=== PATIENT | male | born 1980 | race Caucasian/White ===

== ENCOUNTER 2021-12-23 16:30 | Outpatient (RCR) | payer OTHER, SELFPAY ==
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
--- NOTE | 2022-05-21 13:31 | HP.PTDCSUM ---
It has been my pleasure to treat FELICITAS DENNISON referred by ELIZA Fong, with the diagnosis of BILATERAL CHRONDOMALCIA PATELLA, RIGHT PATELLA TENDONITIS,L ITB SYNDROME for a total of 8 visit(s). Discharge Date: Please see the following information for a summary of their discharge status. Subjective: PT states not m muck ..Pain is hurting with squatting/kneeling. Conts to have popping/cracking Right Knee Pain Intensity (Out of 10): 8 Left Knee Pain Intensity (Out of 10): 6 Objective/Function: POSTURE: WFL. GAIT: reciprocal pattern. MMT: quads/hams 4/5 ,hip flexion 4/5.4-/5 hip abd 4-/5. AROM: 0-120 degrees left ,right knee flexion 0-125 supine degrees. possible benefit from MRI Goal 1:: Patient to be I with HEP KNEES Goal 2:: Patient to demonstrate 50% improvement with decrease pain to improve function Goal 3:: Patient improve AROM RIGHT knee 0-130 degrees to improve function and modified squating Goal 4:: Patient to improve LFES score by 5-10 points to improve QOL Goal 5:: Patient increase strength quads/hams/hip 5/5 to improve function with job demands Plan: RTD If there are questions or concerns regarding this patient's physical therapy, please feel free to call me at [phone]. Thank you for the referral of this patient. Sincerely, Du Benitez, PT, Cert MDT, OCS Balance/Gait/Functional tests - Balance/Special Test Scores Lower Extremity Functional Score: 39
== END 2021-12-23 19:00 | disposition home or self-care (01) ==
LOC: PT 16:30
PROVIDERS: PCP Family Medicine; Referring Provider Physician Assistant; Visit Provider Physician Assistant
DX: M22.41 Chondromalacia patellae, right knee (principal); M22.42 Chondromalacia patellae, left knee; M76.51 Patellar tendinitis, right knee; M76.32 Iliotibial band syndrome, left leg
CPT/HCPCS: 97014; 97110; 97140; 97161; G0283

== ENCOUNTER → 2022-06-11 | Outpatient (CLI) | payer OTHER, SELFPAY ==
--- NOTE | 2022-06-11 17:59 | MRI_ITS ---
STUDY: MRI RIGHT KNEE REASON FOR EXAM: Right knee pain for several years, instability. TECHNIQUE: Standardized fat and water weighted pulse sequences were obtained in all 3 orthogonal planes. COMPARISON: Radiographs 11/06/2021. FINDINGS: Normal medial meniscus. Normal hyaline cartilage of the medial femorotibial compartment. Normal medial femoral condyle and tibial plateau. Normal medial collateral ligamentous complex (MCL). Normal distal semimembranosus, gracilis and semitendinosus tendons. Normal lateral meniscus. Normal hyaline cartilage of the lateral femorotibial compartment. Normal lateral femoral condyle and tibial plateau. Normal proximal tibiofibular articulation. Normal lateral collateral (fibular) ligament. Normal popliteus tendon. Normal biceps femoris tendon. There is intrasubstance mucoid degeneration/cyst of the anterior cruciate ligament (T2 sagittal image 12). There is a lobulated cyst anterior to the distal anterior cruciate ligament (T2 sagittal images 12-15) measuring 1.9 cm in transverse dimension. Normal posterior cruciate ligament (PCL). Normal congruent patellofemoral articulation. Normal hyaline cartilage of the patellofemoral compartment. Normal medial and lateral patellar retinaculum. Normal visualized quadriceps tendon. Normal patellar tendon. Normal Hoffa''s fat pad. There is a very small joint effusion. There is focal synovitis at the posterior superior aspect of the lateral femoral condyle (T2 coronal image 12) measuring 1.3 cm in transverse dimension. The soft tissues are unremarkable. There is mild cystic change of the proximal tibia at the insertion site of the anterior cruciate ligament. MRI/Lower Ext Joint Only (Routine) IMPRESSION: Intrasubstance mucoid degeneration/cyst of the anterior cruciate ligament. Cyst anterior to the distal anterior cruciate ligament. Very small joint effusion. Focal synovitis at the posterior superior aspect of the lateral femoral condyle. No demonstrated meniscal tear. Electronically Signed: Mann Zamorano MD at 19:35 EDT ,
== END | disposition home or self-care (01) ==
LOC: MRI 17:50
PROVIDERS: PCP Family Medicine; Referring Provider Physician Assistant; Visit Provider Physician Assistant
DX: M25.561 Pain in right knee (principal); M76.32 Iliotibial band syndrome, left leg; M22.41 Chondromalacia patellae, right knee; M22.42 Chondromalacia patellae, left knee
CPT/HCPCS: 73721

== ENCOUNTER → 2022-10-02 | Outpatient (CLI) | payer OTHER, SELFPAY ==
--- NOTE | 2022-10-02 17:46 | MRI_ITS ---
EXAM: MR LEFT LOWER EXTREMITY WITHOUT INTRAVENOUS CONTRAST, KNEE CLINICAL INDICATION: left knee pain, possible biceps tendonitis vs ITB TECHNIQUE: Multiplanar and multisequence MR images of the left knee without intravenous contrast. This report was created using [employer] report [employer] technology. COMPARISON: None. FINDINGS: BONES/JOINTS: See below. EXTENSOR MECHANISM: Extensor mechanism is intact. MEDIAL MENISCUS: Unremarkable. LATERAL MENISCUS: Unremarkable. MEDIAL CAPSULE/SUPPORTING STRUCTURES: Unremarkable. Intact. LATERAL CAPSULE/SUPPORTING STRUCTURES: Unremarkable. Lateral collateral ligamentous complex, inclusive of the popliteal tendon, are intact. ANTERIOR CRUCIATE LIGAMENT: Suggestion of partial thickness tearing involving the anterior cruciate ligament with some apparently wavy fibers demonstrated. Correlate with clinical exam findings. Posterior cruciate ligament is intact. POSTERIOR CRUCIATE LIGAMENT: See above. MUSCLES: Unremarkable. CARTILAGE: No focal chondral defects. No focal chondral defects or significant arthritic changes. FLUID: No significant joint effusion. No Alfredo''s cysts. OTHER SOFT TISSUES: Ganglion cysts are identified along the anterior intercondylar notch measuring up to 1.4 cm. MRI/Lower Ext Joint Only (Routine) IMPRESSION: 1. Suggestion of partial thickness tearing involving the anterior cruciate ligament with some apparently wavy fibers demonstrated. Correlate with clinical exam findings. Alternatively, this could represent mucoid degeneration also. 2. No other significant internal derangement. Electronically Signed: Michael Wetzel MD at 3:52 EST ,
== END | disposition home or self-care (01) ==
LOC: MRI 17:45
PROVIDERS: PCP Family Medicine; Visit Provider Orthopaedic Surgery Sports Medicine
DX: M25.562 Pain in left knee (principal); M62.89 Other specified disorders of muscle
CPT/HCPCS: 73721

== ENCOUNTER 2022-11-12 05:55 | Day surgery (SDC) | payer OTHER, SELFPAY ==
[2022-11-12] VITALS (7 sets, daily range): BP systolic 105–128; BP diastolic 72–91; PULSE 59–77; RESP 16–18; TEMP 36.4–36.8; O2SAT 93–99; BMI 28.5
[2022-11-12] MEDS: Lactated Ringers 1,000 ML 15 ML IV ×2 (06:10→08:55)
--- NOTE | 2022-11-12 07:15 | PCM.HP.STD ---
HPI - General HPI Narrative FELICITAS DENNISON, is a 42 M who presents for right knee arthroscopy, debridement, lateral release. No changes to H and P. Post op recovery guidelines discussed. Narcotic counselling for post op medications. Right knee marked. OK to proceed. [facility] [address] [place] [address] OFFICE VISIT Date of Service:? 09/15/22 MR#: [id number] Acct: [id number] Name:FELICITAS SARAVIA Rep #: [id number] : 1980 ? ? Provider: Dr. Bunny Harrison MD Age/Sex:? 41/M ? ? [place] [facility] Status: Signed Intake Intake Visit Reasons:?RIGHT KNEE Chief Complaint: BL Knee Pain Allergies No Known Allergies Allergy (Verified 09/15/22 15:42) Medications esomeprazole magnesium 40 mg capsule,delayed release 40 mg PO DAILY 11/06/21 [History Confirmed 09/15/22] etodolac 300 mg capsule 300 mg PO .COMPLEX #30 caps 06/04/22 [Rx Confirmed 09/15/22] PFSH Medical History?(Updated 09/15/22 @ 16:35 by Bunny Harrison MD) Acid reflux Effusion, right knee Hamstring tightness of left lower extremity Left knee pain Patellofemoral disorders, right knee Sprain of anterior cruciate ligament of right knee Surgical History? History of rotator cuff surgery Family History? Grandfather DiabetesGrandmother Diabetes CVA (cerebral vascular accident) Breast cancerFather Hepatitis C Social History? Smoking Status:? Former smoker Electronic Cigarette Use:? not used second hand exposure:? No alcohol intake:? current alcohol intake frequency: a few times a week substance use type:? does not use HPI RIGHT KNEE Details: Parts of this documentation were recorded by a scribe, this documentation accurately reflects the service provided and the decisions made by me, Dr. Bunny Harrison MD 09/15/22 [id number]. FELICITAS DENNISON is a 41 year old M here today for right knee pain and swelling anterior,, a lot of popping, sometimes giving out when walking. Level of the pain is a 8/10. No radiation. Stabbing, sharp pain.? Nothing makes it better, nothing makes it worse. [place] - walking at [employer], using a mc. Heavy lifting - not more than [address]. [address] Whitman 5 years ago who suggested a lateral release. DId have 2 cortisone injections, 4 years ago. No help with NSAIDs recently. On the left side he has posterior lateral knee pain no instability seen here little bit better with physical therapy including foam rolling.? It centered at the distal posterior lateral aspect of the knee. Ortho Exam General General: Yes no acute distress Neurologic: Yes alert and Yes oriented x3 Psychologic: Yes reasonable and appropriate Right Knee Skin/Wound: Yes CDI, No erythema, No ecchymosis and No swelling 1+: Effusion Knee ROM: Yes ROM-Flexion 0-140 Examination: Yes Med jt line tenderness, No Lat jt line tenderness, Yes TTP inf pole patella, Yes Crepitus, Yes Pain with extention, No Venessa's Test, No TTP Tibial tubercle, No TTP Pes Anserine and No Illiotibial band tenderness Stability: NML: Anterior Drawer, NML: Posterior Drawer, NML: Valgus 0, NML: Valgus 30, NML: Varus 0 and NML: Varus 30 and 1+: Lyly Patella Translation: 1 Apprehension with Lateral Translation: No Patellar Tilt Normal: Yes Patella Grind: Yes KNEE: Most of the pain seems to be coming from the patellofemoral joint.? There is positive patellofemoral grind test negative J sign patella translates about 1 possibly 2 quadrants medially and laterally little bit of tightness laterally.? No excess tilt.? He has slight varus alignment. Left Knee Skin/Wound: Yes CDI, No ecchymosis, No erythema and No swelling Knee ROM: Yes ROM-Flexion 0-140 Examination: No med jt line tenderness, No Lat jt line tenderness, No TTP inf pole patella, Yes Crepitus, Yes Pain with flexion, No Venessa's Test, No TTP Patellar tendon, No TTP Tibial tubercle and Yes Illiotibial band tenderness Quad Atrophy: No Stability: NML: Anterior Drawer, NML: Lyly, NML: Posterior Drawer, NML: Valgus 0, NML: Valgus 30, NML: Varus 0 and NML: Varus 30 Apprehension with Lateral Translation: No Patella Translation: 1 Patellar Tilt Normal: Yes Patella Grind: No KNEE: The pain seems to be centered at the biceps femoris insertion as well as the along the LCL and IT band in the region of the fibular head and exacerbated with resisted knee flexion. Supplemental Info TUDY: ? X-RAY - BILATERAL KNEES REASON FOR EXAM: ? Male, 41 years old.? BILATERAL KNEE PAIN TECHNIQUE: 3 view(s) of the right knee were obtained. 3 view(s) of the left knee were obtained. 2 view(s) of the bilateral knees were obtained including AP standing weight-bearing views. COMPARISON: ? None. FINDINGS - RIGHT KNEE: Normal visualized right distal femur.? Normal visualized proximal right tibia and fibula.? Normal right proximal tibiofibular articulation. There is moderate degenerative arthrosis of the medial femorotibial compartment with moderate joint space narrowing.? Normal lateral femorotibial compartment of the right knee.? Normal patellofemoral articulation of the right knee. The soft tissue structures are unremarkable. FINDING - LEFT KNEE: Normal visualized left distal femur.? Normal visualized proximal left tibia and fibula.? Normal left proximal tibiofibular articulation. There is mild degenerative arthrosis of the medial femorotibial compartment of the left knee.? Normal lateral femorotibial compartment of the left knee.? Normal patellofemoral articulation of the left knee. The soft tissue structures are unremarkable. RAD/Knee 4 or More Views IMPRESSION: Moderate degree of osteoarthritis of the medial compartment of the right knee joint. ? Electronically Signed: Sp Fox MD at 15:24 EST , Service support? , ? MR#:? [id number] Acct: [id number] Name:FELICITAS SARAVIA Rep #: [id number] :?? 1980 M 41 ? From:? ? Mann Zamorano MD PCP: Dr. Vik Thomason, DO ? Status: REG CLI Study: Lower Ext Joint Only (Routine) ? Date of Exam: 06/11/22 Exam# [id number] ? Ordering Dr:? Edilson Davey STUDY:? MRI RIGHT KNEE REASON FOR EXAM: Right knee pain for several years, instability. TECHNIQUE:? Standardized fat and water weighted pulse sequences were obtained in all 3 orthogonal planes. COMPARISON:? Radiographs 11/06/2021. FINDINGS: Normal medial meniscus.? Normal hyaline cartilage of the medial femorotibial compartment.? Normal medial femoral condyle and tibial plateau. Normal medial collateral ligamentous complex (MCL).? Normal distal semimembranosus, gracilis and semitendinosus tendons. Normal lateral meniscus.? Normal hyaline cartilage of the lateral femorotibial compartment.? Normal lateral femoral condyle and tibial plateau. Normal proximal tibiofibular articulation.? Normal lateral collateral (fibular) ligament.? Normal popliteus tendon.? Normal biceps femoris tendon. There is intrasubstance mucoid degeneration/cyst of the anterior cruciate ligament (T2 sagittal image 12).? There is a lobulated cyst anterior to the distal anterior cruciate ligament (T2 sagittal images 12-15) measuring 1.9 cm in transverse dimension.? Normal posterior cruciate ligament (PCL). Normal congruent patellofemoral articulation.? Normal hyaline cartilage of the patellofemoral compartment.? Normal medial and lateral patellar retinaculum. Normal visualized quadriceps tendon.? Normal patellar tendon.? Normal Hoffa''s fat pad. There is a very small joint effusion.? There is focal synovitis at the posterior superior aspect of the lateral femoral condyle (T2 coronal image 12) measuring 1.3 cm in transverse dimension. The soft tissues are unremarkable.? There is mild cystic change of the proximal tibia at the insertion site of the anterior cruciate ligament. MRI/Lower Ext Joint Only (Routine) IMPRESSION: Intrasubstance mucoid degeneration/cyst of the anterior cruciate ligament. ? Cyst anterior to the distal anterior cruciate ligament. ? Very small joint effusion. ? Focal synovitis at the posterior superior aspect of the lateral femoral condyle. ? No demonstrated meniscal tear. ? Electronically Signed: Mann Zamorano MD at 19:35 EDT , I personally reviewed the MRI and x-rays.? Patella is sitting in the groove.? Very minor arthrosis there with the MRI and x-ray findings.? I think there are only minor arthrosis changes in the medial compartment on the radiographs despite the radiologist saying that this is moderate.? I do agree that there is intrasubstance degeneration of the ACL as well as a cyst anterior to this and a small joint effusion no meniscus tear. ? Coding Level of Care Code Off vis,new,level 4 Diagnoses Left knee pain? M25.562 Hamstring tightness of left lower extremity? M62.89 Right knee pain? M25.561 Patellofemoral disorders, right knee? M22.2X1 Effusion, right knee? M25.461 Sprain of anterior cruciate ligament of right knee? S83.511A Time Spent (min) 45 Assessment and Plan Assessment and Plan (1) Left knee pain: ?Status:?Acute (2) Hamstring tightness of left lower extremity: ?Status:?Acute ?Plan: 41-year-old man with left-sided knee pain posterior laterally stable ligamentous exam he could have lateral meniscus tear he did have lateral joint line tenderness as well as tenderness in the region of the fibular head this may be attributable to IT band friction syndrome or biceps femoris tendinitis or other abnormalities in that area.? He has had extensive conservative management with physical therapy.? He would like to go ahead with I have ordered an MRI to further assess on that side. (3) Right knee pain: ?Status:?Acute ?Plan: 41-year-old man with right knee anterior knee pain, mostly patellofemoral pain and overload symptoms.? Some of his pain may be arising from the cyst anterior to the ACL or from an undiagnosed meniscus tear or other mild chondrosis of his knee.? The intrasubstance degeneration of the ACL - I think he had a remote injury. No gross laxity on exam, but slight side to side difference on Lyly testing.? I do not believe that he has a loose knee his pivot shift test was normal as was anterior drawer. ACL chronic laxity could cause PF pain. We discussed nonoperative means of treating this rest ice anti-inflammatories physical therapy cortisone or viscosupplementation injections activity modifications and other treatments.? Surgical option for this would be arthroscopy, debridement and lateral release.? We discussed the pros and cons risks and benefits of this including instability of the patellofemoral joint medially after this procedure.? In addition during the procedure I perform an examination under anesthetic and examination of the ACL debridement of the cyst anterior to the ACL if I found an ACL tear I would not be going ahead with reconstruction however in the future this may be something to consider if this was found on arthroscopy and I did explain this to the patient.? He would like to go ahead with surgery was signed and sent form for right knee arthroscopy, debridement and lateral release. Pros and cons risks and benefits were discussed with the patient including but not limited to infection, pain, stiffness, bleeding, damage to surrounding structures, neurovascular injury, recurrence or retear, failure or wear of hardware or fixation, instability, fracture, deep vein thrombosis and pulmonary embolism, anesthetic risks, patient dissatisfaction, need for further surgery and other risks.? Patient understood and wished to proceed with surgery, and signed the informed consent documentation. (4) Patellofemoral disorders, right knee: ?Status:?Acute (5) Effusion, right knee: ?Status:?Acute (6) Sprain of anterior cruciate ligament of right knee: ?Status:?Acute ? ? ? Orders: [facility] Medical History (Updated 11/05/22 @ 13:40 by Marti Nicholson) Acid reflux Arthritis Effusion, right knee Former smoker Hamstring tightness of left lower extremity History of steroid therapy Left knee pain Leg cramps Patellofemoral disorders, right knee Sprain of anterior cruciate ligament of right knee Wears partial dentures Home Medications esomeprazole magnesium 40 mg capsule,delayed release 40 mg PO DAILY 11/06/21 [History Last Taken 11/11/22] Allergy/AdvReac Type Severity Reaction Status Date / Time No Known Allergies Allergy Verified 11/12/22 06:20 Family History Grandfather Diabetes Grandmother Diabetes CVA (cerebral vascular accident) Breast cancer Father Hepatitis C Surgical History History of rotator cuff surgery Social History Smoking Status: Former smoker Electronic Cigarette Use: not used second hand exposure: No alcohol intake: current alcohol intake frequency: a few times a week substance use type: does not use Vital Signs Vital Signs Vital Signs: 11/12/22 06:20 11/12/22 06:20 Temperature 97.6 F L Temperature Source Temporal Pulse Rate 69 Respiratory Rate 18 Respiratory Pattern Normal Blood Pressure 128/83 H Blood Pressure Mean 98 Blood Pressure Source Monitor Blood Pressure Position Semi-Fowlers Blood Pressure Location Left Arm Pulse Ox 98 Oxygen Delivery Method Room Air Weight Weight: 205 lb 0.478 oz Body Mass Index (BMI) 28.5
[2022-11-12] MEDS: Cefazolin 2 GM in 0.9% Normal Saline 100 ML IV (07:22)
[2022-11-12] MEDS: Epinephrine (1 mg/ml) 1 MG/ML VIAL (07:56)
[2022-11-12] MEDS: Bupivacaine 0.25% 30 ML Vial (08:17)
--- NOTE | 2022-11-12 08:23 | PCM.OPRPT ---
Problems Associated Problem List Diagnoses (1) Patellofemoral disorders, right knee: (2) Right knee pain: (3) Intraligamentous cyst of right knee: Report of Operation Date of Procedure: 11/12/22 Pre-Operative Diagnosis: right knee pain, cyst anterior to ACL, PF pain Post-Operative Diagnosis: same Surgery/Procedure Performed:: right knee arthroscopy, debridement cyst, lateral release Description of Surgical Findings:: cyst anterior to ACL, mild chondrocalcinosis Surgeon: Bunny Harrison Type of Anesthesia: General and Local Anesthesiologist: Alex West Estimated Blood Loss (mL): 10 Description of Procedure: Patient brought to the operating room theater. Placed supine on the operating room table. 34 inch tourniquet to the right thigh appropriately padded. SCD on the nonoperative leg. Stress position to the patient's right side. General anesthesia induced. 2 g IV Ancef administered prior to the start of the case. Limb prepped and draped in the usual sterile fashion allowing over 3 minutes drying time prior to draping. Preoperative timeout performed to confirm the site patient and the surgery. Began by making standard anterolateral and anteromedial arthroscopy portals. Examined the full intra-articular extension the knee. Medial and lateral gutters entered no loose body. Cartilage on the undersurface of the patella appeared normal. There is some mild chondrocalcinosis at the superior aspect of the trochlear groove. I gently debrided this took arthroscopy pictures throughout saved onto the system. Medial compartment entered. Again cartilage was normal medial meniscus stable and solid to probing. One small area medial femur condyle grade 1 changes. ACL had calcification at the distal fibers as well as some irritation and synovitis just anterior to the ACL with a lobulated cystic-appearing area just anterior to the insertion. I debrided this taking care to protect the anterior intrameniscal ligament as well as to protect the ACL fibers. ACL stable and solid. I performed an examination under anesthetic prior to starting the case and the ACL had a stable firm endpoint negative pivot shift. I then entered the lateral compartment with legs crossed. Again the cartilage lateral compartment appeared normal lateral meniscus normal stable to probing. I then removed gently debrided some redundant soft tissue infolding at the lateral aspect of the knee. I then made an accessory superolateral portal use the J hook electrocautery to perform a lateral release along the extent of the longitudinal length of the patella 1 cm inferior to this. Patellofemoral joint was stable and solid full range of motion was achieved in the knee after the case. No obvious excess medial translation and no crepitus from the patellofemoral joint. Case terminated tourniquet let down 22 minutes. Wounds cleaned with wet and dry followed by application of Steri-Strips Adaptic 4 x 4 gauze abdominal pad dressings and sterile 6 inch Chon bandage. Drapes were removed patient woken up from general anesthesia transferred off the operating room table and taken to postanesthetic care unit in stable condition. All sponge needle instrument counts were correct no complications estimated blood loss 10 cc. Plan to the patient weightbearing as tolerated crutches as needed for the first 1 to 2 weeks follow-up in the office in 2 days time leave the dressing on until follow-up. Discharge home when they are comfortable according to day surgery criteria. Complications none Admit VTE Documentation VTE Present on Admission: No VTE Mechan Device Prophylaxis: SCD's Reason prophylaxis not ordered:: Treatment Not Indicated Procedures Musculoskeletal [id number]: Other Procedure See Report
--- NOTE | 2022-11-12 08:54 | DCINST_ITS ---
Discharge Instructions Diet Discharge Diet: No restrictions Activity Weight Bearing Status: Weight bearing as tolerated Additional Activity Instructions:: crutches as needed Dressing / Incision Call your doctor if your incision/area has: Continuous Slow Oozing, Sudden Increased Bleeding, Increased Pain/ Swelling, Increased Redness, Foul Smelling Discharge and Swelling at the incision site Remove Dressing in: leave in place till F/U Follow Up Care Please Follow Up With: Bunny Harrison MD When: within 2 weeks Test Results: Test results from this visit will be discussed in further detail at your follow- up appointment, if applicable. Discharge Plan Admission Attending Provider: Bunny Harrison Primary Care Provider: Vik Thomason Discharge Orders/Prescriptions Prescriptions: New oxycodone-acetaminophen [Endocet] 5-325 mg tablet 1 tab PO Q4H MDD 6 PRN (Reason: pain) 7 Days Qty: 20 0RF No Action esomeprazole magnesium 40 mg capsule,delayed release(DR/EC) 40 mg PO DAILY Referrals / Follow Up: Vik Thomason DO [Primary Care Provider] - Bunny Harrison MD [Med Staff - Active Staff] - Disposition Disposition (needs filled in before D/C Order can be placed): Home, Self Care
[2022-11-12] MEDS: Acetaminophen 325 MG Tablet PO (10:10)
[2022-11-12] MEDS: oxyCODONE 5 MG Tablet PO (10:10)
== END 2022-11-12 11:02 | disposition home or self-care (01) ==
LOC: SDC 05:55 → AC 05:56
PROVIDERS: PCP Family Medicine; Referring Provider Orthopaedic Surgery Sports Medicine; Visit Provider Orthopaedic Surgery Sports Medicine
PROC: (CPT 29870; principal; 2022-11-12 07:10)
DX: M22.2X1 Patellofemoral disorders, right knee (principal); M25.561 Pain in right knee; M17.0 Bilateral primary osteoarthritis of knee; M25.562 Pain in left knee; Z87.891 Personal history of nicotine dependence; M25.361 Other instability, right knee; M25.461 Effusion, right knee; M22.42 Chondromalacia patellae, left knee; M76.32 Iliotibial band syndrome, left leg
CPT/HCPCS: 29873; 01400; J7120; J2405

== ENCOUNTER 2023-01-14 16:00 | Outpatient (RCR) | payer OTHER, SELFPAY ==
--- NOTE | 2022-11-26 07:00 | HP.PTEVAL ---
Patient's Visit Information FELICITAS DENNISON is a 42 year old M referred to Physical Therapy by Dr. Bunny Harrison MD with a diagnosis of R knee arthroscopy, R lateral release and cyst debridment. Date of Evaluation: 11/19/22 Physical Therapist: Oswaldo Merino DPT - Visit Plan Frequency: 2x /Week Duration: 6 Weeks Plan: Start with gentle ROM of R knee. Progress to HEP. Focus on restoring all motion both end range extension an flexion. Add in manual to lateral thigh and quad. Once improved start to work on tolerance to gait and quad control. May use vaso and ice for edema control. - Subjective Pt is here today for his initial evaluation with diagnosis of R knee arthroscopy. He had a lateral release completed with inter ligamentous cyst debridement. pt. reports being pretty sore and limited ability to bend his knee. He is walking with crutches currently. Pt. arrives today with reports of increased pain, mostly with attempting to bend his knee other henry he reports doing well. He works a [employer] walking mostly. Pt. has been dealing with knee pain for a number of years. He is tender all along his lateral knee currently. No NT noted. Pt. is also concerned about his bruising that is throughout thigh. Pain at lateral thigh and knee. - Pain R lateral knee and thigh Pain Intensity (Out of 10): 6 Pain Intensity Range: 3, 8 - Objective POSTURE: Pt. is able to stand with good WBing throughout BLEs. Lacks TKE on R knee. PALPATION: Pt. has bandages in place, slight drainage noted at lateral port hole. Pt. has marked bruising throughout lateral and posterior thigh today. Very tender along IT band and lateral knee. NEURO: normal throughout BLEs. Pt. is able to rise on heels and toes. ROM: L knee: 0-0-129deg. no pain. R knee 0-5-65deg. increased pain thorughout end ranges of motion. Tight IT band nd HS noted in RLE. MMT: LLE 5/5 throughout without increase in symptoms. RLE: ankle 5/5 throughout. knee: SLE with slight lag x4 increased pain. flexion DNT, hip: flexion 3+/5, abd 4/5, ext 4/5. GAIT: Pt. ambulates with crutches with very stiff RLE at knee. He is able to tolerate WBing well, but does not bend knee well with gait. Lack TKE on RLE as well. - Balance/Special Test Scores Lower Extremity Functional Score: 0 - Goals Goal 1:: LTG: Pt. to be I with HEP. Goal Time Frame: 4-6 Weeks Goal 2:: STG: PT. to be able to sleep throughout the night without increase in symptoms. Goal Time Frame: 2 Weeks Goal 3:: LTG: Pt. to have increased R knee ROM to 0-0-125deg without increase in symptoms allowing for good tolerance to all functional mobility. Goal Time Frame: 2-4 Weeks Goal 4:: STG: Pt. to have increased AROM of R knee to 0-0-100deg allowing for increased ability to tolerate walking and stair negotiation. Goal Time Frame: 2-4 Weeks Goal 5:: STG: Pt. to complete x10 SLR with out lag indicating increased quad control. Goal Time Frame: 2 Weeks Goal 6:: LTG: Pt. to have increased RLE strength to 5/5 throughout symmetrical to L side. Goal Time Frame: 4-6 Weeks - Rehabilitation Potential Physical Therapy Diagnosis: Pt. has signs and symptoms consistent with R lateral release. He has subsequent R knee hypomobility, weakness, difficulty with walking, and limited functional mobility. He would benefit from PT to address the above limitation progressing back to all work and recrational activities. Rehabilitation Potential: Good - Anticipated Interventions Patient/Client Instruction: Educate patient on: Condition, Plan of Care, Risk Factors, Benefits of Fitness Program For the Purpose of:: To foster healthy habits, To improve decision making, To facilitate caregiver knowledge, To improve self management, To prevent re-injury, To improve ability to perform tasks related to life management Therapeutic Exercise to Include: Strength training, Balance training, Coordination, Postural training, Flexibilty training, Gait and locomotor training For the Purpose of:: To decrease pain, To increase ROM, To improve nutrient delivery to tissue, To improve muscle performance and motor function, To improve ability to perform ADL's, To increase tolerance to activity/condition/position, To improve gait and locomotor functions, To improve health of tissue, To decrease soft tissue restriction, To increase flexibility/ROM Manual Therapy Techniques to Include: Massage, Mobilization, Soft tissue mobilization For the Purpose of:: To decrease pain, To increase ROM, To improve nutrient delivery to tissue, To improve health of tissue, To decrease soft tissue restriction Cryotherapy (ice pack, ice massage): Yes Vasopneumatic device: Yes For the Purpose of:: To decrease pain, To decrease swelling/inflammation, To increase ROM, To improve nutrient delivery to tissue, To increase oxygenation perfusion, To improve muscle performance and motor function, To improve ability to perform ADL's Thank you for the opportunity to evaluate your patient. For Medicare and Medicare HMO plans, please review the plan of care and approve it. It will need to be FAXED BACK to us at [phone] for Medicare purposes. For Medicare only, by signing this I certify the plan of care. Please let me know if there are questions or concerns regarding this plan of care. Physician Signature: Date:
--- NOTE | 2023-01-14 16:48 | HP.PTDCSUM ---
It has been my pleasure to treat FELICITAS DENNISON referred by Dr. Bunny Harrison MD, with the diagnosis of R knee arthroscopy, R lateral release and cyst debridment for a total of 15 visit(s). Discharge Date: 01/14/23 Please see the following information for a summary of their discharge status. Subjective: Pt. reports overall doing much better. Pt. is to return to physician on February 05. He is back full go without issues. He does get some tightness as his work day goes on. He does have some increased swelling all the time, but does not cause increased pain. R lateral knee and thigh Pain Intensity (Out of 10): 0 posterior knee Pain Intensity (Out of 10): 0 % Improvement: 95 Objective/Function: ROM: 0-0-138deg. Mild tenderness at end range extension. MMT: R knee: ext 45.1#, flexion 44.2#. L knee ext 50.2#, flexion 41.4. GAIT: pt. has normal gait pattern without increase in symptoms. He does have marked varus positioning of his knees, but is symmetrical. Rest of his pattern is normal. STAIRS: normal no pain, no HR. Pt. does still have some swelling around the superior and inferior anterior aspects of his knee. I asked him if it goes down in the AMs, but reports it is pretty much constant. He did have initial issues with swelling and it has improved, but is present. Pt. is other henry doing very well. Pt. is to follow up with physician on February 05. Goal 1:: LTG: Pt. to be I with HEP. Goal Progress: Goal Met Goal 2:: STG: PT. to be able to sleep throughout the night without increase in symptoms. Goal Progress: Goal Met Goal 3:: LTG: Pt. to have increased R knee ROM to 0-0-125deg without increase in symptoms allowing for good tolerance to all functional mobility. Goal Progress: Goal Met Goal 4:: STG: Pt. to have increased AROM of R knee to 0-0-100deg allowing for increased ability to tolerate walking and stair negotiation. Goal Progress: Goal Met Goal 5:: STG: Pt. to complete x10 SLR with out lag indicating increased quad control. Goal Progress: Goal Met Goal 6:: LTG: Pt. to have increased RLE strength to 5/5 throughout symmetrical to L side. Goal Progress: Goal Met Plan: Pt. DC from PT back to physician at this point in time. Discharge Comments: Pt. will be DC from PT at this point in time. He has met all goals and is progressing well. He does have some swelling which I hope continues to reduce with time. He is to follow up with physician in middle of January. If there are questions or concerns regarding this patient's physical therapy, please feel free to call me at [phone]. Thank you for the referral of this patient. Sincerely, Oswaldo Rosenbergos, DPT Balance/Gait/Functional tests - Balance/Special Test Scores Lower Extremity Functional Score: 70
== END 2023-01-14 19:00 | disposition home or self-care (01) ==
LOC: PT 16:00
PROVIDERS: PCP Family Medicine; Referring Provider Orthopaedic Surgery Sports Medicine; Visit Provider Orthopaedic Surgery Sports Medicine
DX: M76.51 Patellar tendinitis, right knee (principal); M23.8X1 Other internal derangements of right knee
CPT/HCPCS: 97016; 97110; 97161; 97164

== ENCOUNTER 2023-09-03 11:38 | Emergency (ER) | payer OTHER, SELFPAY ==
[2023-09-03 11:39] VITALS: BP 149/106; PULSE 90; RESP 18; TEMP 36.1; O2SAT 99; BMI 28.8
[2023-09-03 12:52] LABS: Absolute Lymphocyte Count 1.77 X10^3/uL (0.83-4.51); Absolute Neutrophil Count 3.8 X10^3/uL (2.0-7.7); Basophil# 0.05 X10^3/uL; Basophil% 0.8 % (0-1); Eosinophil# 0.07 X10^3/uL; Eosinophils% 1.1 % (0-5); Hematocrit 45.5 % (40-54); Hemoglobin 15.4 g/dL (13.0-16.5); Lymphocyte # 1.77 X10^3/ul (0.83-4.51); Lymphocyte % 27.9 % (19-41); Mean Corp Hgb Conc 33.8 g/dL (32-36); Mean Corpuscular Hgb 29.4 pg (27.0-32.0); Mean Platelet Vol. 9.8 fl (6.2-12.0); Monocyte% 9.5 % (0-10); NRBC Flagged by Analyzer 0 % (0-5); Neutrophil # 3.81 X10^3/uL (2.7-7.7); Neutrophil % 60.1 % (47-70); Platelet Count 276 K/mm3 (150-450); RBC Distribution Width CV 11.9 % (11.6-14.6); Red Blood Count 5.23 M/mm3 (4.6-6.2); White Blood Count 6.3 K/mm3 (4.4-11.0)
[2023-09-03 13:01] LABS: ALB/GLOB Ratio 1.1 RATIO (0.9-2.4); AST(SGOT) 13 U/L (15-37); Alanine Aminotransfer ALT/SGPT 28 U/L (16-61); Albumin, Serum 3.8 g/dL (3.2-5.0); Alkaline Phosphatase 69 U/L (45-117); Anion Gap 4 (5-15); BUN 14 mg/dL (7-18); BUN/Creat Ratio 12.2 RATIO (10-20); Calcium,Total 8.3 mg/dL (8.5-10.1); Chloride 109 mmol/L (98-107); Creatinine, Serum 1.15 mg/dL (0.70-1.30); EST Glomerular Filtration Rate 74 mL/min (>60); Est Glom Filt Rate - Afr Amer 89 mL/min (>60); Estimated Creatinine Clearance 88.21 ml/min; Globulin 3.5 g/dL (2.2-4.2); Glucose 108 mg/dL (74-106); Lipase 31 U/L (13-75); Potassium 3.6 mmol/L (3.5-5.1); Protein, Total 7.3 g/dL (6.4-8.2); Sodium Level 138 mmol/L (136-145)
[2023-09-03 13:12] LABS: Color, Urine Yellow (Yellow); Glucose, Dipstick Normal (Normal); Ketone-Dipstick Negative (Negative); Leukocyte Esterase-Dipstick Negative /ul (Negative); Nitrite-Dipstick Negative (Negative); Occult Blood-Urine 25 /ul (Negative); Protein-Dipstick 15 mg/dl (Negative); Urine Bilirubin Dipstick Negative (Negative); Urine Clarity Clear (Clear); Urine Urobilinogen 1 mg/dl (Normal)
--- NOTE | 2023-09-03 13:32 | CT_ITS ---
INDICATION: right flank pain x6 days, nausea, bloating EXAMINATION: CT ABDOMEN AND PELVIS WITHOUT CONTRAST - CT Abdomen And Pelvis W/O Contrast Injection TECHNIQUE: Helically acquired images were obtained of the abdomen and pelvis without oral or IV contrast. A radiation dose optimization technique was used for this scan. IV Contrast dosage and agent: None. Oral contrast: None. RADIATION DOSAGE (If Supplied By Facility): CTDIvol = ( 15.72 ) mGy, DLP = ( 764.66 ) mGycm COMPARISON: No relevant prior comparison study available FINDINGS: LOWER CHEST: Lung bases are clear. No cardiomegaly or pericardial effusion. The lack of intravenous contrast limits the evaluation of solid visceral organs. LIVER: Homogeneous. No focal mass. GALLBLADDER AND BILIARY TREE: No calcified gallstones. No gallbladder distension or wall edema. No intra- or extrahepatic biliary ductal dilation. PANCREAS: No focal cystic or solid mass. SPLEEN: Normal size without focal cystic or solid mass. ADRENAL GLANDS: No nodules. KIDNEYS AND URETERS: Normal renal size and position. No hydronephrosis. PERITONEUM: No ascites or free air. No other fluid collection. BOWEL: No evidence of acute appendicitis. No stomach or bowel distension. No focal inflammatory change. LYMPH NODES: No enlarged mesenteric or retroperitoneal lymph nodes. VESSELS: Aorta is non-dilated. URINARY BLADDER: Unremarkable. REPRODUCTIVE ORGANS: No pelvic masses. ABDOMINAL WALL: There is a small fat-containing left umbilical hernia. BONES: There are bilateral L5 pars defects associated with a grade 1 anterior spondylolisthesis of L5 on S1. There are degenerative changes of the visualized thoracic and lumbar spine. CT/Abdomen/Pelvis without Cont IMPRESSION: Bilateral L5 pars defects associated with a grade 1 anterior spondylolisthesis of L5 on S1. Small fat-containing left inguinal hernia. Electronically Signed: No Sousa MD at 14:02 EDT ,
--- NOTE | 2023-09-03 14:50 | ED.VIS.GI ---
HPI HPI - GI History of Present Illness Chief Complaint: Abd Pain Narrative Narrative: 42-year-old male with a week of right lower quadrant abdominal pain. Its intermittent. He states that sharp. Sometimes radiates to the right side of his back. He has bowel movements every day. No diarrhea. No fevers or chills. No nausea or vomiting. No history of abdominal surgeries. PFSH PFS Medical History Acid reflux Arthritis Effusion, right knee Former smoker Hamstring tightness of left lower extremity History of steroid therapy Intraligamentous cyst of right knee Left knee pain Leg cramps Patellofemoral disorders, right knee Sprain of anterior cruciate ligament of right knee Wears partial dentures Home Medications esomeprazole magnesium 40 mg capsule,delayed release 40 mg PO DAILY 11/06/21 [History Last Taken 11/11/22] Allergy/AdvReac Type Severity Reaction Status Date / Time No Known Allergies Allergy Verified 09/03/23 11:40 Family History Grandfather Diabetes Grandmother Diabetes CVA (cerebral vascular accident) Breast cancer Father Hepatitis C Surgical History History of rotator cuff surgery Social History Smoking Status: Former smoker Electronic Cigarette Use: not used second hand exposure: No alcohol intake: current alcohol intake frequency: a few times a week substance use type: does not use ROS ROS ED Constitutional Constitutional ED: Denies chills, fever(s) or sweats Eyes Eyes: Denies blurry vision or change in vision ENT ENT ED: Denies ear pain or sore throat Cardiovascular Cardiovascular: Denies chest pain, palpitations or racing heartbeat Respiratory/Chest Respiratory/Chest: Denies cough, dyspnea or sputum Gastrointestinal Gastrointestinal: Reports abdominal pain; Denies constipation, diarrhea, nausea or vomiting Genitourinary Genitourinary ED: Denies dysuria, hematuria or urinary frequency Musculoskeletal Musculoskeletal: Denies arthralgias, myalgias or neck pain Integumentary Denies abscess, Abrasions or rash Neurologic Neurologic: Denies headache(s), paresthesias or weakness Psychiatric Psychiatric: Denies anxiety, depression, suicidal ideation or suicidal thoughts Endocrine Endocrinology: Denies polydipsia or polyuria EXAM Physical Exam Const Vital Signs: 09/03/23 11:39 Temperature 97 F L Temperature Source Temporal Pulse Rate 90 Respiratory Rate 18 Blood Pressure 149/106 H Blood Pressure Mean 120 Pulse Ox 99 Oxygen Delivery Method Room Air Positive well nourished General Appearance ED: NAD; Negative for pallor HEENT normocephalic and atraumatic Eyes PERRL Resp normal respiratory effort and clear to auscultation bilaterally Cardio regular rate and regular rhythm GI non-distended and no masses Palpation: tender RLQ Back/Spine no CVA tenderness Neuro CN's II-XII intact bilaterally Sensorium / Orientation: alert Motor Exam: strength 5/5 throughout Psych mental status grossly normal Skin no wounds General Skin Exam: Negative for jaundice or pallor MDM MDM MDM Narrative Medical decision making narrative: 42-year-old male presenting with right-sided abdominal pain. Patient presenting with right flank pain. Differential includes colitis, diverticulitis, gastritis, pancreatitis, acute cholecystitis, constipation, appendicitis, UTI, pyelonephritis, renal calculi, ureteral calculi, obstruction, malignancy, dehydration, electrolyte abnormalities. CBC was obtained to assess white blood cell count, hemoglobin, platelets. CMP to assess liver function, renal function, electrolytes, glucose. Lipase to assess for pancreatitis. Urinalysis to assess for UTI. Patient refuses pain medication or antiemetics. CBC, CMP, lipase all within normal limits. Urinalysis shows some occult blood but other than this there is no evidence of infection. I did obtain a CT scan of the abdomen pelvis without contrast to rule out kidney stone and this was negative for kidney stone but does show a pars defect which is likely the source of the patient's pain. Given that his work-up was ultimately negative I recommend he follow-up with his PCP to ensure resolution. I think he stable for discharge at this time. Impression: 1. Abdominal pain Lab Data Attestation: I reviewed the patient's lab results. Labs: Laboratory Results - last 24 hr 09/03/23 09/03/23 11:58 13:00 WBC 6.3 RBC 5.23 Hgb 15.4 Hct 45.5 MCV 87.0 MCH 29.4 MCHC 33.8 RDW Std Deviation 38.0 RDW Coeff of Loki 11.9 Plt Count 276 MPV 9.8 Immature Gran % (Auto) 0.600 Neut % (Auto) 60.1 Lymph % (Auto) 27.9 Sebastian % (Auto) 9.5 Eos % (Auto) 1.1 Baso % (Auto) 0.8 Absolute Neuts (auto) 3.8 Absolute Lymphs (auto) 1.77 Nucleated RBC % 0 Sodium 138 Potassium 3.6 Chloride 109 H Carbon Dioxide 25.0 Anion Gap 4 L BUN 14 Creatinine 1.15 Estim Creat Clear Calc 88.21 Est GFR (MDRD) Af Amer 89 Est GFR (MDRD) Non-Af 74 BUN/Creatinine Ratio 12.2 Glucose 108 H Calcium 8.3 L Total Bilirubin 0.50 AST 13 L ALT 28 Alkaline Phosphatase 69 Total Protein 7.3 Albumin 3.8 Globulin 3.5 Albumin/Globulin Ratio 1.1 Lipase 31 Urine Color Yellow Urine Clarity Clear Urine pH 6.0 Ur Specific [place] 1.020 Urine Protein 15 H Urine Glucose (UA) Normal Urine Ketones Negative Urine Occult Blood 25 H Urine Nitrite Negative Urine Bilirubin Negative Urine Urobilinogen 1 H Ur Leukocyte Esterase Negative Radiography Diagnostic Testing: Clinical Impression(s) from Imaging Studies Abdomen/Pelvis CT 09/03/23 13:32 IMPRESSION: Bilateral L5 pars defects associated with a grade 1 anterior spondylolisthesis of L5 on S1. Small fat-containing left inguinal hernia. Electronically Signed: No Sousa MD at 14:02 EDT , Discharge Plan Triage Chief Complaint: Abd Pain ED Provider: Nolan Jin Dx/Rx/DC Orders Instructions: ED Hematuria, ED Abdominal Pain Unkn Cause Male... Prescriptions: No Action esomeprazole magnesium 40 mg capsule,delayed release(DR/EC) 40 mg PO DAILY Primary Care Provider: Vik Thomason Referrals: Vik Thomason DO [Primary Care Provider] - Disposition Disposition: Home, Self Care
== END 2023-09-03 15:00 | disposition home or self-care (01) ==
PROVIDERS: Emergency Provider Student in an Organized Health Care Education/Training Program; PCP Family Medicine; Visit Provider Student in an Organized Health Care Education/Training Program
DX: R10.31 Right lower quadrant pain (principal); Z87.891 Personal history of nicotine dependence; K21.9 Gastro-esophageal reflux disease without esophagitis; Z79.899 Other long term (current) drug therapy
CPT/HCPCS: 74176; 80053; 81002; 83690; 85025; 99283; A4216

== ENCOUNTER 2023-10-07 10:33 | Emergency (ER) | payer OTHER, SELFPAY ==
[2023-10-07 10:38] VITALS: BP 162/99; PULSE 112; RESP 16; TEMP 36.5; O2SAT 98; BMI 30.7
--- NOTE | 2023-10-07 11:10 | EX.ED.UPPERE ---
HPI History of Present Illness Chief Complaint: Laceration Detail of Chief Complaint: Laceration right forearm Informant: patient Narrative Narrative: Patient presents to the emergency department complaint of laceration to the right forearm that occurred while at work today. Patient states that he was walking by some scrap and a piece of metal lacerated his forearm. He is right-hand dominant. He is unsure of his last tetanus shot. PFSH PFSH Medical History Acid reflux Arthritis Effusion, right knee Former smoker Hamstring tightness of left lower extremity History of steroid therapy Intraligamentous cyst of right knee Left knee pain Leg cramps Patellofemoral disorders, right knee Sprain of anterior cruciate ligament of right knee Wears partial dentures Home Medications esomeprazole magnesium 40 mg capsule,delayed release 40 mg PO DAILY 11/06/21 [History Last Taken 11/11/22] calcium carbonate 200 mg calcium (500 mg) chewable tablet (Tums) 200 mg PO TID PRN dyspepsia 09/16/23 [History Last Taken Unknown] cyclobenzaprine 10 mg tablet mg PO 09/16/23 [History Last Taken Unknown] Allergy/AdvReac Type Severity Reaction Status Date / Time No Known Allergies Allergy Verified 10/07/23 10:40 Family History Grandfather Diabetes Grandmother Diabetes CVA (cerebral vascular accident) Breast cancer Father Hepatitis C Surgical History History of rotator cuff surgery S/P right knee surgery Social History Smoking Status: Former smoker Electronic Cigarette Use: not used second hand exposure: No alcohol intake: current alcohol intake frequency: a few times a week substance use type: does not use ROS ROS ED Review of Systems ROS Unobtainable: other Constitutional Constitutional ED: Reports lethargy; Denies chills, fever(s), sweats or weight loss Eyes Eyes: Denies blurry vision, change in vision or diplopia ENT ENT ED: Denies rhinorrhea or sore throat Cardiovascular Cardiovascular: Denies chest pain, orthopnea or racing heartbeat Respiratory/Chest Respiratory/Chest: Denies cough, dyspnea, dyspnea on exertion, orthopnea or sputum Gastrointestinal Gastrointestinal: Denies abdominal pain, diarrhea, nausea or vomiting Genitourinary Genitourinary ED: Denies dysuria, hematuria or urinary frequency Musculoskeletal Musculoskeletal: Reports other Details: Laceration right forearm ; Denies arthralgias, back pain, myalgias or neck pain Integumentary Denies abscess, Abrasions or rash Neurologic Neurologic: Denies headache(s) or weakness Psychiatric Psychiatric: Denies anxiety, depression or suicidal thoughts Endocrine Endocrinology: Denies polydipsia, polyphagia or polyuria Hematologic/Lymphatic Hematologic/Lymphatic: Denies easy bleeding, easy bruising or lymphadenopathy Allergic/Immunologic Allergic/Immunologic ED: Denies mouth swelling, tongue swelling or urticaria EXAM Physical Exam Const Vital Signs: 10/07/23 10:38 Temperature 97.7 F L Temperature Source Temporal Pulse Rate 112 H Respiratory Rate 16 Blood Pressure 162/99 H Blood Pressure Mean 120 Pulse Ox 98 Oxygen Delivery Method Room Air Positive well nourished and well developed General Appearance ED: well developed and NAD HEENT Reports TM's clear and moist mucous membranes normocephalic and atraumatic; Negative for trauma or tenderness Tympanic Membrane ED: Yes TM's clear Eyes PERRL and EOMs intact bilaterally General Eye ED: Negative for pale conjunctiva or scleral icterus Neck no lymphadenopathy, supple and no JVD General: Negative for tenderness Chest Wall inspection of chest normal and palpation of chest normal Chest: Negative for tenderness Resp normal respiratory effort and clear to auscultation bilaterally Effort and Inspection: Negative for respiratory distress or pain with movement Auscultation: Negative for rhonchi, wheezes or diminished lung sounds Cardio regular rate, regular rhythm, S1 normal heart sound, S2 normal heart sound and no murmurs Peripheral Pulses: pulses 2+ throughout GI normal to inspection, nondistended, normoactive bowel sounds, soft to palpation, non-tender, non-distended and no masses Back/Spine no CVA tenderness and no thoracic nor lumbar tenderness Extremity Extremity Narrative: Right forearm-patient has a laceration to the dorsum of the mid forearm that is vertical in orientation measuring 7 cm. Laceration does go through the [employer] into the extensor muscles of the forearm. He has normal range of motion flexion extension of all digits. He is neurovascular intact. No foreign bodies noted within the wound. General Extremety ED: Negative for edema General Extremity: Negative for edema Neuro oriented x3, CN's II-XII intact bilaterally, no sensory deficits noted and gait normal Sensorium / Orientation: awake, alert, oriented to person, oriented to place and oriented to time Motor Exam: strength 5/5 throughout and strength abnormal Psych mental status grossly normal Skin no rashes or lesions noted and no wounds MDM MDM MDM Narrative Medical decision making narrative: Patient with laceration to the dorsum of the forearm. Patient had suture repair in the department. He is neurovascular intact. He is advised to follow-up with corporate care in 10 days for suture removal. To return if increasing pain, redness, swelling, purulent drainage, or condition worsening way. Procedures Lacerations Right forearm laceration: Length: 2.76 in Depth: Muscle Prep: Sterile Conditions and Shure-Clens Laceration repair: Irrigated, Lidocaine, Local, Skin sutures and Wound explored Irrigated (ml): 100 Number of Sutures/[place]: 10 Suture Information: Vicryl, Ethilon, Simple, 4-0 and 5-0 Comment: I attempted to close the paramedian centimeters of the extensor forearm muscle with 5-0 Vicryl total of 3 sutures placed. The dermal surface was closed with 4-0 nylon total 7 simple interrupted sutures. Patient tolerated procedure well. Discharge Plan Triage Chief Complaint: Laceration ED Provider: Ame Patton Dx/Rx/DC Orders Clinical Impression: Laceration of forearm, right Instructions: ED Laceration: All Closures Prescriptions: No Action esomeprazole magnesium 40 mg capsule,delayed release(DR/EC) 40 mg PO DAILY cyclobenzaprine 10 mg tablet PO calcium carbonate [Tums] 200 mg calcium (500 mg) tablet,chewable 200 mg PO TID PRN (Reason: dyspepsia) Primary Care Provider: Vik Thomason [facility] - 10 Day for suture removal Vik Thomason DO [Primary Care Provider] - Disposition Disposition: Home, Self Care
[2023-10-07] MEDS: Diphth,Pertuss(Acell),Tet Vac 0.5 ML Vial IM (11:14)
[2023-10-07] MEDS: Lidocaine 1% (20 ml mdv) 20 ML Vial 8 ML INFILT (11:15)
== END 2023-10-07 11:29 | disposition home or self-care (01) ==
LOC: ED 11:19
PROVIDERS: Emergency Provider Emergency Medicine; PCP Family Medicine; Visit Provider Emergency Medicine
DX: S51.811A Laceration without foreign body of right forearm, initial encounter (principal); Z87.891 Personal history of nicotine dependence; W26.8XXA Contact with other sharp object(s), not elsewhere classified, initial encounter; Y93.01 Activity, walking, marching and hiking; Y99.0 Civilian activity done for income or pay; Y92.69 Other specified industrial and construction area as the place of occurrence of the external cause; K21.9 Gastro-esophageal reflux disease without esophagitis; Z79.899 Other long term (current) drug therapy
CPT/HCPCS: 12032; 99285

== ENCOUNTER 2023-10-30 09:10 | Day surgery (SDC) | payer OTHER, SELFPAY ==
[2023-10-30 09:32] VITALS: BP 134/93; PULSE 70; RESP 16; TEMP 36.2; O2SAT 98; BMI 29.2
[2023-10-30] MEDS: Lactated Ringers 1,000 ML 15 ML IV (09:37)
--- NOTE | 2023-10-30 10:06 | HP.PCM_ITS ---
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 Is patient in pain?: No Allergies No Known Allergies Allergy (Verified 09/16/23 15:07) Medications esomeprazole magnesium 40 mg capsule,delayed release 40 mg PO DAILY 11/06/21 [History Confirmed 09/16/23] calcium carbonate 200 mg calcium (500 mg) chewable tablet (Tums) 200 mg PO TID PRN 09/16/23 [History Confirmed 09/16/23] cyclobenzaprine 10 mg tablet mg PO 09/16/23 [History Confirmed 09/16/23] PFSH Medical History Acid reflux Arthritis Effusion, right knee Former smoker Hamstring tightness of left lower extremity History of steroid therapy Intraligamentous cyst of right knee Left knee pain Leg cramps Patellofemoral disorders, right knee Sprain of anterior cruciate ligament of right knee Wears partial dentures Surgical History History of rotator cuff surgery S/P right knee surgery Family History Grandfather DiabetesGrandmother Diabetes CVA (cerebral vascular accident) Breast cancerFather Hepatitis C Social History Smoking Status: Former smoker Electronic Cigarette Use: not used second hand exposure: No alcohol intake: current alcohol intake frequency: a few times a week substance use type: does not use HPI HPI HPI: Patient is a 42-year-old male here with severe GERD. He reports that he cannot go without his omeprazole or Tums or he starts having severe GERD. This been going on for several years. He says that it happens regardless of what he eats. ROS General General: No weight change, appetite, fatigue, colon cancer, breast cancer or weakness HEENT HEENT: No difficulty swallowing, eye injury, eye surgery, swollen glands or hoarseness Endo Endocrine: No thyroid disease, diabetes mellitus, thyroid cancer, Hair loss, heat intolerance or cold intolerance Skin Skin: No rash or changing moles Breast Breast: No left breast lump, right breast lump, nipple discharge, breast pain, abnormal mammogram, abnormal US or breast enlargement Musc Musculoskeletal: Yes arthritis; No back problems, rheumatoid arthritis, gout or joint pain Cardio Cardiovascular: No murmur, pacemaker, heart disease, atrial fibrillation, high blood pressure, heart attack, heart stent, palpitations, shortness of breat with exertion or chest pain Psych Psychiatric: No depression, anxiety or hearing voices Resp Respiratory: No shortness of breath, Yes sleep apnea, No cough, No COPD, No asthma, No emphysema and No wheezing Gastro Gastrointestinal: No abdominal pain, Yes nausea or vomiting, No diarrhea, No constipation, No blood in stool, Yes acid reflux, No hemorrhoids, No ulcers, No gallbladder problem and No black,tarry stools [place] Hematologic: No blood thinners, No blood disorders, No bleeding, No anemia and No blood clots Neuro Neurologic: No system reviewed and no additional complaints, except as documented, No as per HPI, No abnormal gait, No abnormal hearing, No abnormal movements, No abnormal speech, No behavioral changes, No burning sensations, No confusion, No convulsions, No disequilibrium, No dizziness, No localized weakness, No frequent falls, No headache(s), No lack of coordination, No loss of vision, No memory loss, No numbness, No other visual disturbances, No radicular pain, No restless legs, No sensory deficit, No syncope, No tingling, No tremor(s), No weakness and No other Exam Const General: cooperative Orientation: alert and oriented x3 HENMT Head: normal to inspection Neck Neck: normal visual inspection and full ROM Chest Chest palpation & inspection: normal inspection of the chest Resp Effort & Inspection: normal respiratory effort Auscultation: clear to auscultation bilaterally Cardio Rate: regular rate Rhythm: regular rhythm GI Inspection: non-distended Palpation: soft and nontender Skin General: no rashes or lesions noted Neuro General: patient alert and patient oriented x3 Extrem General: full ROM Psych Appearance: grossly normal Mental Status: mental status grossly normal Assessment and Plan Assessment and Plan (1) Gastroesophageal reflux disease: Qualifiers: Esophagitis presence: esophagitis presence not specified Qualified Code(s): K21.9 - Gastro-esophageal reflux disease without esophagitis Plan: Patient has severe GERD. The patient seems refractory to PPI. I discussed briefly laparoscopic Valentino fundoplication with him and the pathophysiology of GERD. I will perform an EGD with pH probe as well as manometry. Patient will come back to discuss Valentino fundoplication after both procedures. I explained endoscopy in detail to the patient. I explained the risks including but not limited to stroke or heart attack with anesthesia, perforation of the GI tract, bleeding, infection. I explained that any of these could necessitate further emergency surgery. The patient understands and all questions were answered sufficiently. The patient wishes to proceed with procedure. . Griffin Leslie MD Pager: [facility] [address] [place] [address], [address] [place] [address] Office: I have examined the patient and the H&P has been reviewed. There are no clinical changes since date of exam.
--- NOTE | 2023-10-30 10:15 | IMM_PTH ---
PATIENT: FELICITAS DENNISON LOC: EN U#:[id number] AGE/SX: 43/M ROOM: RE10/30/[address]: Dr. Griffin Leslie MD : 1980 BED: DIS: 10/30/2023 SPEC #: [id number] RECD: 10/30/23 13:11 STATUS: PAOLO REQ #: [id number] NATALIO: 10/30/23 10:[address]: Griffin Leslie DEPT: IMMUNOHISTOCHEMISTRY RECD BY: Marion Scott ENTERED: 10/30/23 13:12 SP TYPE: IMMUNO OTHR DR: Dr. Vik Thomason, Tissues: Stomach, NOS Procedures: H Pylori (initial) PHYSICIAN & INSTITUTION [place] [address] SPECIMEN INFORMATION: Tissue Source: Gastric antrum Clinical Info: GERD Specimen Number: [id number] CPT code: 56558 METHODOLOGY: Deparaffinized sections of prefer/formalin-fixed tissue or PAP/DQ stained slides are incubated with monoclonal/polyclonal antibodies/oligonucleotide probes. Localization is made via biotin free immunoperoxidase method. Appropriate controls are performed and reacted as expected. Results on target cell population are indicated in the following table: RESULTS: ANTIBODY / CLONE RESULT H Pylori (polyclonal) negative These tests were developed and their performance characteristics determined by [facility]. They may not have been cleared or approved by the U.S. Food and Drug Administration. The FDA has determined that such clearance or approval is not necessary. The above immunohistochemical/dualISH markers are ordered and reviewed by the Pathologist. INTERPRETATION: Gastric antrum, biopsy: Negative for Helicobacter pylori organisms. AM:manan 11/02/2023
--- NOTE | 2023-10-30 10:15 | EGD_PTH ---
PATIENT: FELICITAS DENNISON LOC: EN U#:[id number] AGE/SX: 43/M ROOM: RE10/30/[address]: Dr. Griffin Leslie MD : 1980 BED: DIS: 10/30/2023 SPEC #: [id number] RECD: 10/30/23 11:37 STATUS: PAOLO REJose #: [id number] NATALIO: 10/30/23 10:[address]: Griffin Leslie DEPT: SURGICAL PATHOLOGY RECD BY: Anjali Rodríguez ENTERED: 10/30/23 12:25 SP TYPE: EGD BIOPSY OTHR DR: Dr. Vik Thomason, DO Tissues: Gastric mucous membrane Procedures: Surgery Specimen Level IV HEADER OPERATION: EGD - PH probe biopsy PRE-OP DIAGNOSIS: GERD TISSUE SUBMITTED: Gastric antrum, H. pylori and path MICROSCOPIC DIAGNOSIS Gastric antrum, biopsy: Minimal chronic inflammation. See comment. AM:manan 11/02/2023 COMMENT The results of immunohistochemistry for Helicobacter pylori will be reported separately ([id number]). MICROSCOPIC DESCRIPTION Slides are reviewed. GROSS DESCRIPTION Received in fixative is one container labeled with the patient's name and designated gastric antrum. The specimen consists of one irregular fragment of light mccarty soft tissue that measures 0.5 x 0.3 x 0.1 cm. The specimen is totally submitted in one cassette. / AM:manan 10/30/2023 TC:3 CPT: 53865
--- NOTE | 2023-10-30 10:43 | OP.EGD_ITS ---
Patient Name: Niels Bains Procedure Date: 10/30/2023 10:13 AM Date of : 1980 Age: 43 Procedure: Upper GI endoscopy Indications: Heartburn, Gastro-esophageal reflux disease Providers: Griffin Leslie MD Medicines: Propofol per Anesthesia Patient Profile: This is a 43 year old male. Refer to note in patient chart for documentation of history and physical. Complications: No immediate complications. Estimated blood loss: Minimal. Procedure: Pre-Anesthesia Assessment: - Prior to the procedure, a History and Physical was performed, and patient medications and allergies were reviewed. The patient's tolerance of previous anesthesia was also reviewed. The risks and benefits of the procedure and the sedation options and risks were discussed with the patient. All questions were answered, and informed consent was obtained. Prior Anticoagulants: The patient has taken no anticoagulant or antiplatelet agents. After reviewing the risks and benefits, the patient was deemed in satisfactory condition to undergo the procedure. After obtaining informed consent, the endoscope was passed under direct vision. Throughout the procedure, the patient's blood pressure, pulse, and oxygen saturations were monitored continuously. The gastroscope was introduced through the mouth, and advanced to the fourth part of duodenum. The upper GI endoscopy was accomplished without difficulty. The patient tolerated the procedure well. Scope In: 10:32:54 AM Scope Out: 10:38:57 AM Total Procedure Duration Time 0 hours 6 minutes 3 seconds Findings: Few non-bleeding superficial duodenal ulcers with no stigmata of bleeding were found in the duodenal bulb. The stomach was normal. The esophagus was normal. The TRACEY capsule with delivery system was introduced through the mouth and advanced into the esophagus, such that the TRACEY pH capsule was positioned 31 cm from the incisors, which was 6 cm proximal to the GE junction. Suction was applied to the well of the TRACEY pH capsule to suck in the adjacent mucosa of the esophagus using the external vacuum pump set at a minimum vacuum pressure of 550 mmHg for 30 seconds. The TRACEY pH capsule was then deployed by depressing the plunger on top of the handle to advance the locking pin into the mucosa, thereby attaching the capsule to the esophagus. The plunger was then rotated a quarter turn clockwise to release the capsule from the delivery system. The delivery system was then withdrawn. Endoscopy was utilized for probe placement and diagnostic evaluation. Biopsies were taken with a cold forceps in the gastric antrum for Helicobacter pylori testing. Impression: - Non-bleeding duodenal ulcers with no stigmata of bleeding. - Normal stomach. - Normal esophagus. - The TRACEY pH capsule was positioned 31 cm from the incisors, which was 6 cm proximal to the GE junction. - No specimens collected. Recommendation: - Discharge patient to home. - Resume previous diet. - Continue present medications. Procedure Code(s): --- Professional --- 85254, Esophagogastroduodenoscopy, flexible, transoral; with biopsy, single or multiple Diagnosis Code(s): --- Professional --- K26.9, Duodenal ulcer, unspecified as acute or chronic, without hemorrhage or perforation R12, Heartburn K21.9, Gastro-esophageal reflux disease without esophagitis CPT copyright 2021 [employer]. All rights reserved. The codes documented in this report are preliminary and upon neurophysiologist review may be revised to meet current compliance requirements. Griffin Leslie MD 10/30/2023 10:43:11 AM This report has been signed electronically. Number of Addenda: 0 Note Initiated On: 10/30/2023 10:13 AM
--- NOTE | 2023-10-30 10:43 | OP.CCLET_ITS ---
10/30/2023 Vik Thomason [address] [facility] [place] [place] [address] Re : Upper GI endoscopy procedure for Niels Gutierrezwarren Dear Dr. Thomason This procedure was performed on Monday, October 30, 2023. My impressions and recommendations are as follows: Impressions : - Non-bleeding duodenal ulcers with no stigmata of bleeding. - Normal stomach. - Normal esophagus. - The TRACEY pH capsule was positioned 31 cm from the incisors, which was 6 cm proximal to the GE junction. - No specimens collected. Recommendations : - Discharge patient to home. - Resume previous diet. - Continue present medications. My findings are described in the full procedure note, which is enclosed. If I can be of further assistance, please feel free to contact me at Doctor phone number(s): , Work: . Sincerely, Griffin Leslie MD 10/30/2023 10:43:11 AM This report has been signed electronically.
[2023-10-30 10:47] VITALS: BP 119/84; BP 134/93; PULSE 80; RESP 16; TEMP 36.3; O2SAT 95
[2023-10-30 10:50] VITALS: BP 123/82; BP 134/93; PULSE 73; RESP 16; O2SAT 96
[2023-10-30 10:55] VITALS: BP 123/92; BP 134/93; PULSE 73; RESP 16; O2SAT 96
[2023-10-30 11:01] VITALS: BP 134/100; BP 134/93; PULSE 71; RESP 16; TEMP 36.6; O2SAT 96
[2023-10-30 11:16] VITALS: BP 134/93
== END 2023-10-30 11:24 | disposition home or self-care (01) ==
LOC: EN 09:10 → AC 09:12
PROVIDERS: PCP Family Medicine; Referring Provider Family Medicine; Visit Provider Surgery
PROC: (CPT 43235; principal; 2023-10-30 10:10)
DX: K21.9 Gastro-esophageal reflux disease without esophagitis (principal); Z87.891 Personal history of nicotine dependence; K26.9 Duodenal ulcer, unspecified as acute or chronic, without hemorrhage or perforation; Z79.899 Other long term (current) drug therapy; K29.50 Unspecified chronic gastritis without bleeding
CPT/HCPCS: 43235; 88305; 88342; J7120; J2405

== ENCOUNTER 2023-11-27 07:59 | Day surgery (SDC) | payer OTHER, SELFPAY ==
[2023-11-27] MEDS: Lidocaine Jelly 2% 20 ML Syringe (URO-JET) 1 APPLIC (08:10)
[2023-11-27 08:13] VITALS: BP 132/98; PULSE 74; RESP 16; TEMP 36.3; O2SAT 99
== END 2023-11-27 23:59 | disposition home or self-care (01) ==
LOC: EN 08:00
PROVIDERS: PCP Family Medicine; Referring Provider Family Medicine; Visit Provider Surgery
PROC: F00ZJWZ Instrumental Swallowing and Oral Function Assessment using Swallowing Equipment (ICD-10-PCS; CPT 43235; principal; 2023-11-27 07:55)
DX: K21.9 Gastro-esophageal reflux disease without esophagitis (principal)
CPT/HCPCS: 91010

== ENCOUNTER 2024-01-25 15:27 | Observation (INO) | payer OTHER, SELFPAY ==
[2024-01-25] VITALS (13 sets, daily range): BP systolic 103–141; BP diastolic 68–96; PULSE 64–98; RESP 14–18; TEMP 36.1–36.6; O2SAT 93–100; BMI 29.5
[2024-01-25] MEDS: Lactated Ringers 1,000 ML 15 ML IV (12:03)
--- NOTE | 2024-01-25 12:06 | HP.PCM_ITS ---
History and Physical Date of Admission: 01/25/24 Intake Vital Signs 10/30/2309:32 Height 5 ft 10 in Intake Visit Reasons: ESOPHAGEAL STUDY RESULTS Chief Complaint: esophageal study results Accompanied by: Is patient in pain?: No Allergies No Known Allergies Allergy (Verified 12/11/23 15:03) Medications esomeprazole magnesium 40 mg capsule,delayed release 40 mg PO DAILY 11/06/21 [History Confirmed 12/11/23] calcium carbonate 200 mg calcium (500 mg) chewable tablet (Tums) 200 mg PO TID PRN dyspepsia 09/16/23 [History Confirmed 12/11/23] cyclobenzaprine 10 mg tablet 10 mg PO PRN PRN muscle spasm 09/16/23 [History Confirmed 12/11/23] Subjective Details: Patient is here to discuss fundoplication and hiatal hernia repair. Objective Details: Abdomen is soft and nontender. Coding Level of Care Code Off vis,est,level 3 Diagnoses Gastroesophageal reflux disease K21.9 [facility] Medical History (Updated 12/31/23 @ 08:[address] Griffin Leslie MD) Acid reflux Alcohol use Arthritis Effusion, right knee Former smoker Hamstring tightness of left lower extremity Intraligamentous cyst of right knee Laceration without foreign body of right forearm, initial encounter Left knee pain Leg cramps Open wound Patellofemoral disorders, right knee Restless legs Sprain of anterior cruciate ligament of right knee Wears partial dentures Surgical History (Updated 10/29/23 @ 08:13 by Serina Hernandez) History of rotator cuff surgery S/P right knee surgery Family History Grandfather DiabetesGrandmother Diabetes CVA (cerebral vascular accident) Breast cancerFather Hepatitis C Social History Smoking Status: Former smoker Electronic Cigarette Use: not used second hand exposure: No alcohol intake: current alcohol intake frequency: a few times a week substance use type: does not use Assessment and Plan (No Qualifiers) Assessment and Plan (1) Gastroesophageal reflux disease: Status: Acute Plan: The patient has severe GERD. I performed an EGD with pH probe as well as manometry. The manometry did show a fairly weak swallow mechanism so I recommended hiatal hernia repair with toupet fundoplication. I discussed the procedure with him and his in detail. I discussed the postoperative care and gave him postoperative diet restrictions. I discussed the procedure as well as the risks including but not limited to bleeding, infection, injury to other organs such as the esophagus, spleen, stomach, small bowel or liver. Patient understands the risks and is willing to proceed with surgery. Griffin Leslie MD Pager: [facility] [address] [place] [address] [address] [place] [address] Office: I have examined the patient and the H&P has been reviewed. There are no clinical changes since date of exam.
[2024-01-25] MEDS: Cefotetan 2 GM in 0.9% NS 100 ML IV (12:50)
[2024-01-25] MEDS: Bupivacaine Mpf 0.5% 30 ML VIAL (15:12)
--- NOTE | 2024-01-25 15:19 | OP.PCM_ITS ---
Report of Operation Date of Procedure: 01/25/24 Pre-Operative Diagnosis: GERD and hiatal hernia Post-Operative Diagnosis: Same Surgery/Procedure Performed:: 1. Laparoscopic hiatal hernia repair with toupet fundoplication 2. EGD Type of Anesthesia: General/Regional Specimen's removed: None Estimated Blood Loss (mL): 40 Description of Procedure: Patient was brought back to the operating room and general anesthesia was induced. The abdomen was prepped and draped in usual sterile fashion. A midline incision was made superior to the umbilicus and deepened to the fascia which was elevated and incised. A port was placed into the abdomen and then the abdomen was insufflated to 15 mmHg. Camera was placed into the abdomen and there were no injuries from entry. Patient was placed in steep reverse Trendelenburg position and his epigastric area was examined. Next under direct visualization a 5 mm port was placed in the epigastric region. The port was removed and through the incision the medium Bernarda retractor was placed and elevate the left lobe of the liver. It was locked in place. Next under direct visualization a 5 mm port was placed in the left upper quadrant and then there was a 5 mm port placed more medial in the left upper quadrant and then another 5 mm port placed in the right upper quadrant. The thin tissue over the caudate lobe was taken down using Enseal. Dissection was carried medially until the right crura was identified. It was skeletonized and then anteriorly and posteriorly dissection was carried until the esophagus was identified. Next in the left upper quadrant the greater curvature was mobilized at the superior portion of the stomach. This was done using Enseal and there was good hemostasis. Once the stomach was fully mobilized from the spleen and the short gastrics the left crura was skeletonized in the same fashion. Next an opening was made behind the esophagus and a Yaniv drain was placed around the eso phagus and grasped and traction was placed inferiorly. Next dissection was carried around the esophagus and the mediastinum to mobilize enough esophagus. Vagus nerves were identified and spared. Next the crura were reapproximated using interrupted Surgidac suture. Next the OG was removed and the stomach was wrapped behind the esophagus. The stomach was shoeshine maneuvered and it had good mobility and there was plenty of space. Next the bougie was placed under direct visualization down the esophagus into the stomach by anesthesia. 54 Icelandic bougie was used. Next the stomach was sutured to the anterior esophagus and a 270 degree wrap fashion. Another suture was placed posterior from the stomach to the crura to anchor the wrap. Next the bougie was removed. The patient was laid flat and the abdomen was instilled with saline. I performed an EGD. A well-lubricated EGD scope was placed over the bite-block and down the esophagus and into the stomach. There was some blood in the stomach which was suctioned. I did not see any active bleeding. The wrap appeared in good shape and it appeared tight around the scope. The scope easily passed through the GE junction. There was no leaking inside the abdomen when Arenson insufflated into the stomach. Next the air was aspirated from the stomach and the scope was removed. The abdomen was irrigated and suctioned dry. Next the Bernarda liver retractor was removed under direct visualization. All of the ports were removed and the abdomen was allowed to desufflate. The midline larger incision was closed with interrupted 0 Vicryl sutures. All the incisions were injected with local anesthetic and closed with interrupted 4-0 Monocryl sutures. Steri-Strips and bandages were applied. Patient tolerated the procedure well was brought to PACU in stable condition. Admit VTE Documentation VTE Mechan Device Prophylaxis: SCD's
[2024-01-25] MEDS: Lorazepam 2 MG/ML WCH Syringe 0.5 MG IV ×2 (16:24→17:10)
[2024-01-25] MEDS: Ketorolac 15 MG/ML Vial IV (16:27)
[2024-01-25] MEDS: 0.9% Normal Saline (1000mL) 1,000 ML 100 ML IV (16:30)
[2024-01-25] MEDS: Morphine 2 MG/ML Syringe IV ×2 (19:33→21:32)
--- NOTE | 2024-01-25 21:35 | RAD_ITS ---
INDICATION: chest pain EXAMINATION/TECHNIQUE: X-RAY - XR Chest 1 View COMPARISON: None. FINDINGS: LINES/DEVICES: None. LUNGS: No consolidation or evidence of an effusion. No evidence of edema or a pneumothorax. MEDIASTINUM AND CARDIOVASCULAR STRUCTURES: Cardiac silhouette is normal in size and contour. Mediastinum is unremarkable. BONES AND SOFT TISSUES: No acute abnormality. RAD/Chest 1 View (Portable) IMPRESSION: No evidence of cardiopulmonary disease. Electronically Signed: Jorge A Cornejo DO at 22:24 EST ,
[2024-01-26] MEDS: Morphine 2 MG/ML Syringe IV ×2 (00:53→08:45)
[2024-01-26 01:30] VITALS: BP 132/92; PULSE 73; RESP 16; TEMP 36.6; O2SAT 96
[2024-01-26] MEDS: 0.9% Normal Saline (1000mL) 1,000 ML 100 ML IV ×2 (02:40→12:35)
[2024-01-26] MEDS: Ketorolac 15 MG/ML Vial IV (05:00)
[2024-01-26 05:29] VITALS: BP 124/82; PULSE 92; RESP 16; TEMP 36.8; O2SAT 98
[2024-01-26 05:57] LABS: Absolute Lymphocyte Count 1.47 X10^3/uL (0.83-4.51); Absolute Neutrophil Count 11.3 X10^3/uL (2.0-7.7); Basophil# 0.03 X10^3/uL; Basophil% 0.2 % (0-1); Eosinophil# 0.01 X10^3/uL; Eosinophils% 0.1 % (0-5); Hemoglobin 14.8 g/dL (13.0-16.5); Lymphocyte # 1.47 X10^3/ul (0.83-4.51); Lymphocyte % 10.5 % (19-41); Mean Corp Hgb Conc 33.6 g/dL (32-36); Mean Corpuscular Hgb 29.1 pg (27.0-32.0); Mean Corpuscular Volume 86.6 fL (80-94); Mean Platelet Vol. 9.3 fl (6.2-12.0); Monocyte# 1.08 X10^3/uL; Monocyte% 7.7 % (0-10); NRBC Flagged by Analyzer 0 % (0-5); Neutrophil # 11.33 X10^3/uL (2.7-7.7); Neutrophil % 81.1 % (47-70); Platelet Count 275 K/mm3 (150-450); RBC Distribution Width CV 11.8 % (11.6-14.6); RBC Distribution Width SD 37.5 fl (35.1-43.9); Red Blood Count 5.08 M/mm3 (4.6-6.2)
[2024-01-26 06:59] LABS: Anion Gap 10 (5-15); BUN 12 mg/dL (7-18); BUN/Creat Ratio 11.8 RATIO (10-20); Calcium,Total 8.2 mg/dL (8.5-10.1); Chloride 107 mmol/L (98-107); Creatinine, Serum 1.02 mg/dL (0.70-1.30); EST Glomerular Filtration Rate 84 mL/min (>60); Est Glom Filt Rate - Afr Amer 102 mL/min (>60); Estimated Creatinine Clearance 106.04 ml/min; Glucose 117 mg/dL (74-106); Potassium 3.7 mmol/L (3.5-5.1); Sodium Level 141 mmol/L (136-145)
--- NOTE | 2024-01-26 08:29 | PCM.PN.SRG ---
Subjective Subjective Patient had some chest pain overnight. Chest x-ray was obtained but it was normal. He says the pain went away and he can feel like something was done in there but he said the pain is very tolerable and minimal. He is not having any nausea or vomiting and he is not having any uncontrolled pain. Objective Data Objective Data Vital Signs: Vital Signs Temp Pulse Resp BP Pulse Ox O2 Del Method O2 Flow Rate 98.2 F 92 16 124/82 H 98 Room Air 2 01/26/24 05:01/26/24 05:29 01/26/24 05:29 01/26/24 05:29 01/26/24 05:01/26/24 05:01/25/24 21:30 Oxygen Flow Rate (L/min) 2 Oxygen Delivery Method Room Air Weight: 205 lb 11.06 oz Body Mass Index (BMI) 29.5 Intake & Output: Intake and Output for Last 24 Hours 01/24/24 01/25/24 01/26/24 23:59 23:59 23:59 Intake Total 2100 / 2100 1000 / 1000 Output Total 1100 / 1100 Balance 2100 / 1800 -100 / -100 Lab / Micro Data 01/26/24 05:17 01/26/24 05:17 Labs: Laboratory Results - last 24 hr 01/26/24 05:17: WBC 14.0 H, RBC 5.08, Hgb 14.8, Hct 44.0, MCV 86.6, MCH 29.1, MCHC 33.6, RDW Std Deviation 37.5, RDW Coeff of Loki 11.8, Plt Count 275, MPV 9.3, Immature Gran % (Auto) 0.400, Neut % (Auto) 81.1 H, Lymph % (Auto) 10.5 L, Wood % (Auto) 7.7, Eos % (Auto) 0.1, Baso % (Auto) 0.2, Absolute Neuts (auto) 11.3 H, Absolute Lymphs (auto) 1.47, Nucleated RBC % 0, Sodium 141, Potassium 3.7, Chloride 107, Carbon Dioxide 24.0, Anion Gap 10, BUN 12, Creatinine 1.02, Estim Creat Clear Calc 106.04, Est GFR (MDRD) Af Amer 102, Est GFR (MDRD) Non-Af 84, BUN/Creatinine Ratio 11.8, Glucose 117 H, Calcium 8.2 L Radiography Diagnostic Testing: Radiology Impression Chest X-Ray 01/25/24 21:35 IMPRESSION: No evidence of cardiopulmonary disease. Electronically Signed: Jorge A Cornejo DO at 22:24 EST , Physical Exam Const oriented x3 and no apparent distress Resp normal respiratory effort GI soft to palpation and non-tender Assessment & Plan Assessment/Plan (1) Gastroesophageal reflux disease: PLAN: Patient had hiatal hernia repair with toupet fundoplication yesterday. Chest x-ray overnight was normal when he was having chest pain. I suspect this may have been diaphragmatic pain. The patient says he is feeling well this morning with no issues. He says he tolerated sips and chips well yesterday. I was planning on ordering an upper GI but our radiologist is out today. The patient says he tolerated sips and chips and he is feeling well so I will start a clear liquid diet. As long as he tolerates clear liquid diet will advance him to full's and discharge him this afternoon. Griffin Leslie MD Pager: [facility] [address] [place] [address], [address] [place] [address] Office:
[2024-01-26 08:42] VITALS: BP 131/88; PULSE 87; RESP 18; TEMP 37.1; O2SAT 97
[2024-01-26] MEDS: Acetaminophen 650 MG/20 ML UDC PO (10:45)
[2024-01-26 12:33] VITALS: BP 138/92; PULSE 65; RESP 18; TEMP 36.6; O2SAT 98
--- NOTE | 2024-01-26 13:01 | DCINST_ITS ---
Discharge Instructions Diet Discharge Diet: - (Full Liquid as previously advised) Activity Discharge Activity: May Drive (after 2-3 days and after off narcotic pain medication) and May Shower Lifting Restrictions: 15 lbs for 6 weeks Dressing / Incision Call your doctor if your incision/area has: Continuous Slow Oozing, Sudden Increased Bleeding, Increased Pain/ Swelling, Increased Redness, Foul Smelling Discharge and Swelling at the incision site Call your doctor if you observe: Fever of 101 or Higher Remove Dressing in: 2 days (Remove clear dressings in 2 days, remove steri strips in 7-10 days) Cleanse incision/area with: Soap & Water Follow Up Care Please Follow Up With: Griffin Leslie MD When: Please call to schedule 1 week follow up appointment. [phone] Test Results: Test results from this visit will be discussed in further detail at your follow- up appointment, if applicable. Discharge Plan Admission Admit Date/Time: 01/25/24 15:27 Attending Provider: Griffin Leslie Primary Care Provider: Vik Thomason Discharge Orders/Prescriptions Prescriptions: New acetaminophen 650 mg/20.3 mL Solution 650 mg PO Q4H PRN PRN (Reason: Pain Score 1-10) Qty: 0 0RF hydrocodone-acetaminophen 7.5-325 mg/15 mL Solution 15 ml PO Q6H PRN PRN (Reason: Pain Score 6-10) 5 Days Qty: 200 0RF Continued cyclobenzaprine 10 mg tablet 10 mg PO PRN PRN (Reason: muscle spasm) Discontinued esomeprazole magnesium 40 mg capsule,delayed release(DR/EC) 40 mg PO DAILY calcium carbonate [Tums] 200 mg calcium (500 mg) tablet,chewable 200 mg PO TID PRN (Reason: dyspepsia) Referrals / Follow Up: Vik Thomason DO [Primary Care Provider] - Disposition Disposition (needs filled in before D/C Order can be placed): Home, Self Care
[2024-01-26] MEDS: HYDROCODONE/APAP 7.5-325/15ML 15 ML UDC PO (13:29)
[2024-01-26 15:30] VITALS: BP 131/85; PULSE 72; RESP 16; TEMP 36.8; O2SAT 97
== END 2024-01-26 15:45 | disposition home or self-care (01) ==
LOC: SDC 17:30 → MS3 17:30
PROVIDERS: Admitting Provider Surgery; PCP Family Medicine; Referring Provider Family Medicine; Visit Provider Surgery
PROC: (CPT 43325; principal; 2024-01-25 12:40)
PROC: 0DJ08ZZ Inspection of Upper Intestinal Tract, Via Natural or Artificial Opening Endoscopic (ICD-10-PCS; CPT 43235; principal; 2024-01-25 12:55)
DX: K21.9 Gastro-esophageal reflux disease without esophagitis (principal); K44.9 Diaphragmatic hernia without obstruction or gangrene; Z87.891 Personal history of nicotine dependence; R07.9 Chest pain, unspecified; Z79.899 Other long term (current) drug therapy; Z86.16 Personal history of COVID-19
CPT/HCPCS: 43281; 00790; 36415; 71045; 80048; 85025; 94668; 96361; 96374; 96375; 96376; 99221; J7030; J7120; C1760; G0378; J2405